=== PATIENT | male | born 1985 | race African-American/Black ===

== ENCOUNTER 2022-09-12 19:07 | Emergency (ER) | payer MEDICAID ==
[~2022-09-12] VITALS: Ht 177.8 cm; Wt 91.0 kg
[2022-09-12] MEDS ORDERED: ONDANSETRON HCL 4MG/2ML INJ IV ONE (23:00)
[2022-09-12] MEDS ORDERED: SODIUM CHLORIDE 0.9% 1,000 ML IV ONE (23:00)
[2022-09-12 23:09] LABS: BASOPHILS % 0.5 % (0.0-2.0); EOSINOPHILS % 0.4 % (0.0-5.0); HEMATOCRIT. 40.5 % (36.0-48.0); HEMOGLOBIN. 13.5 g/dL (12.0-16.0); MEAN CORPUSCULAR HEMOGLOBIN 28.8 pg (28.0-32.0); MEAN CORPUSCULAR VOLUME 86.3 fL (81.0-99.0); MEAN PLATELET VOLUME 8.6 fl (7.4-10.4); MONOCYTES % 10.2 % (2.0-8.0); NEUTROPHILS % 41.9 % (40.0-76.0); PLATELET 242 x1000/uL (130-400); RED CELL DISTRIBUTION WIDTH 14.9 % (11.6-14.6)
[2022-09-12 23:13] LABS: CHLORIDE 102 mEq/L (98-107)
[2022-09-13] MEDS ORDERED: ACETAMINOPHEN 325MG TABLET PO ONE (01:00)
[2022-09-13 01:08] VITALS: BP 137/90
== END 2022-09-13 02:01 | disposition home or self-care (01) ==
LOC: EDSEX → ER 19:07
DX: R11.0 Nausea (principal); R63.0 Anorexia; F41.9 Anxiety disorder, unspecified; F32.9 Major depressive disorder, single episode, unspecified; B20 Human immunodeficiency virus [HIV] disease; Z59.00 Homelessness unspecified
CPT/HCPCS: 36415; 80053; 83690; 85025; 96374; 99283; J2405; J7030

== ENCOUNTER 2022-09-13 03:13 | Emergency (ER) | payer MEDICAID ==
[~2022-09-13] VITALS: Ht 177.8 cm; Wt 91.0 kg
[2022-09-13 06:31] VITALS: BP 135/84
== END 2022-09-13 06:32 | disposition home or self-care (01) ==
LOC: ER 03:13
DX: Z00.00 Encounter for general adult medical examination without abnormal findings (principal); F41.9 Anxiety disorder, unspecified; F32.9 Major depressive disorder, single episode, unspecified; B20 Human immunodeficiency virus [HIV] disease; Z59.00 Homelessness unspecified
CPT/HCPCS: 99281